=== PATIENT | male | born 1950 | race African-American/Black ===

== ENCOUNTER 2017-02-21 08:19 | Inpatient (IN) ==
--- NOTE | 2017-02-21 09:14 | EKG Report ---
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
[2017-02-21 09:18] LABS: Basophils % 0.5 % (0.0-0.8); Eosinophils # 0.5 10*3/uL (0.0-0.87); Eosinophils % 10.8 % (0.00-10.9); Hematocrit 40.6 VOL% (42.0-52.0); Hemoglobin 13.3 GM/DL (14.0-18.0); Immature Granulocytes % 0.2 %; Immature Granulocytes Absolute 0.01 #; Lymphocytes # 1.4 10*3/uL (1.4-4.0); Lymphocytes % 32.5 % (21.2-54.2); Mean Corpuscular HGB Conc 32.8 GM/DL (32-36); Mean Corpuscular Hemoglobin 31 PG (27-34); Mean Corpuscular Volume 95.3 FL (87-102); Mean Platelet Volume 10.5 FL (9.6-12.0); Monocytes # 0.5 10*3/uL (0.11-0.8); Neutrophils # 1.8 10*3/uL (1.4-7.4); Platelet Count 139 T/CUMM (130-400); Red Blood Count 4.26 MC/CUMM (3.8-5.5); Red Cell Distribution Width 14.9 % (9.3-17.3); White Blood Count 4.2 T/CUMM (4-12)
--- NOTE | 2017-02-21 09:35 | XRay Report ---
XR chest 2V Date: 02/21/2017 9:10 AM History: Chest pain Comparison: 09/12/2014 Technique: PA and lateral chest Findings: The heart is smaller in size with left subclavian atrioventricular permanent pacemaker. The lungs are clear with unremarkable mediastinum. Degenerative changes are noted. Impression: No acute cardiopulmonary pathology identified. Left subclavian atrioventricular permanent pacemaker. PROCEDURE INTERPRETED AT [facility] DEPARTMENT OF RADIOLOGY Final Report Signed by: Dr. Andreea Ramon
[2017-02-21 09:40] LABS: Alanine Aminotransferase 49 U/L (16-61); Albumin 3.4 G/DL (3.4-5.0); Alkaline Phosphatase 99 U/L (45-117); Aspartate Amino Transferase 30 U/L (0-37); Bilirubin,Total < 0.39 MG/DL (0.2-1.0); Blood Urea Nitrogen 40 MG/DL (7-18); Calcium 8.9 MG/DL (8.5-10.1); Glucose 86 MG/DL (74-106); Osmolality,Calculated 289.3 MOS/KG (273-304); Potassium 4.2 MMOL/L (3.5-5.1); Sodium 141 MMOL/L (136-145); Total Protein 7.3 G/DL (6.4-8.3); Troponin I Only 0.026 NG/ML (0.00-0.045)
[2017-02-21] MEDS ORDERED: ASPIRIN 325 MG TABLET PO STA (09:53)
[2017-02-21] MEDS ORDERED: ONDANSETRON 4 MG/2 ML VIAL IV STA (09:53)
[2017-02-21] MEDS ORDERED: MORPHINE 2 MG/1 ML SYRINGE IV STA (09:53)
[2017-02-21] MEDS ORDERED: NITROGLYCERIN 2% OINT 1 INCH/GM PACK TOP STA (09:53)
[2017-02-21] MEDS ORDERED: ALUM/MAG/SIMETH/LIDO VISC 1:1 30 ML BOTTLE PO STA (09:53)
[2017-02-21] MEDS ORDERED: FUROSEMIDE 40 MG/4 ML VIAL IV STA (09:53)
[2017-02-21] MEDS ORDERED: NITROGLYCERIN 2% OINT 1 INCH/GM PACK TOP ONE (10:16)
[2017-02-21] MEDS ORDERED: FUROSEMIDE 40 MG/4 ML VIAL ONE (10:16)
[2017-02-21] MEDS ORDERED: MORPHINE 2 MG/1 ML SYRINGE ONE (10:17)
[2017-02-21] MEDS ORDERED: ALUM/MAG/SIMETH/LIDO VISC 1:1 30 ML BOTTLE PO ONE (10:17)
[2017-02-21] MEDS ORDERED: ONDANSETRON 4 MG/2 ML VIAL ONE (10:17)
[2017-02-21] MEDS ORDERED: ASPIRIN 325 MG TABLET ONE (10:17)
--- NOTE | 2017-02-21 10:31 | Emergency Department Note ---
Ravinder Paulino Mantricia, am scribing for, and in the presence of, Richie Donohue MD 09:50. Charanjit Paulino Charles R, MD, personally performed the services described in this documentation, ascribed by Eddie Castellon in my presence, and it is both accurate and complete . Arrival - Arrival Chief Complaint: Chest Pain Stated Complaint: sob,chest pain, pacemaker problem ED Nursing Triage Note: Pt c/o left sided chest pain, over pacemaker, x3 weeks. Pt also reports SOB with exertion. Mode of Arrival: Ambulatory Limitations: No Limitations Source: Patient Time Seen by Provider: 02/21/17 09:29 - History of Present Illness HPI Narrative: Pt is a 66 y/o black male arriving to ED by EMS with c/o SOB that onset 3 weeks ago. Pt states that he thought the he would be relieved every day, but it never went away so he decided to come to ED. Pt's SOB is accompanied with left-sided chest pain during night and upon exertion. He states that he feels like his chest is getting bigger. Pt has a pacemaker and admits to smoking. He reports no other complaints to ED. Onset (ago): week(s) Consistency: constant Severity: mild Severity scale (1-10): 3 Allergies/Adverse Reactions: Allergies Allergy/AdvReac Type Severity Reaction Status Date / Time No Known Allergies Allergy Verified 02/21/17 08:32 Review of System - Review of System 12 point system: reviewed and no additional remarkable complaints except as stated - Review of System Constitutional: Absent: chills, diaphoresis, fever, weakness Eyes: Absent: discharge, pain, redness Head/Ears/Nose/Throat: Absent: earache, epistaxis, nasal drainage Respiratory: Absent: cough, respiratory distress, wheezing Cardiovascular: Present: chest pain (left-sided), dyspnea on exertion. Absent: palpitations Gastrointestinal: Absent: abdominal pain, nausea, vomiting, diarrhea Genitourinary male: Absent: urgency, dysuria Musculoskeletal: Absent: arm pain, back pain, leg pain, neck pain Skin: Absent: rash, lesions, change in color Neurological: Absent: headache, weakness Psychiatric: Absent: anxiety, depression Medical,Surgical,& Family Hx - Medical History Cardio: History of: Hypertension, Pacemaker Endocrine: History of: Diabetes Mellitus (NIDDM) (not on medication) - Social History Smoking Status: Smoker, status unknown Frequency of Alcohol Use: None Type of Drug Use: None Exam Vital Signs: Vital Signs Temperature 98.0 F 02/21/17 09:00 Pulse Rate 64 02/21/17 09:00 Respiratory Rate 18 02/21/17 09:00 Blood Pressure 136/96 02/21/17 09:00 O2 Sat by Pulse Oximetry 100 02/21/17 08:48 - General General appearance: alert, in no apparent distress - Head Head exam: Present: atraumatic, normocephalic, normal inspection - Eye Eye exam: Present: normal appearance, PERRL, EOMI - ENT ENT exam: Present: normal exam, normal oropharynx, mucous membranes moist, TM's normal bilaterally, normal external ear exam - Neck Neck exam: Present: normal inspection, full ROM, trachea midline. Absent: tenderness - Chest Chest inspection: Present: normal inspection, symmetric chest wall rise. Absent : tenderness - Respiratory Respiratory exam: Present: rales (bilateral) - Cardiovascular Cardiovascular exam: Present: regular rate, normal rhythm, normal heart sounds - Abdominal Exam Abdominal exam: Present: soft, normal bowel sounds. Absent: distention, tenderness, guarding, rebound - Extremities Exam Extremities exam: Present: full ROM, normal capillary refill, other (LE edema). Absent: tenderness - Back Exam Back exam: Present: normal inspection, full ROM. Absent: tenderness - Neurological Exam Neurological exam: Present: alert, oriented X3, CN II-XII intact, normal gait, reflexes normal - Psychiatric Psychiatric exam: Present: normal affect, normal mood - Skin Skin exam: Present: warm, dry, intact, normal color Course - Consultations Consultation #1: Hospitalist will admit patient Time: 10:31 Results - Labs CBC & BMP: 02/21/17 08:57 02/21/17 08:57 Lab Results: I have reviewed the patients labs Labs: Laboratory Tests 02/21/17 02/21/17 08:57 08:57 Hgb 13.3 L Hct 40.6 L Chloride 109 H BUN 40 H Creatinine 4.20 H Globulin 3.9 H Albumin/Globulin Ratio 0.8 L - Diagnostic Findings Procedure: Chest x-ray: report reviewed by me (No acute cardiopulmonary pathology identified. Left subclavian atrioventricular permanent pacemaker. ) Disposition Clinical Impression: Chest pain, Exertional dyspnea, Chronic renal failure, Pacemaker Case discussed with: patient Disposition: Still a Patient Condition: Stable Time of Disposition: 10:42
--- NOTE | 2017-02-21 11:24 | Hospitalist History & Physical ---
Assessment and Plan - Time spent with patient Time spent with patient: Greater than 30 minutes (1) Acute on chronic renal failure Status: Acute Assessment and plan: 66-year-old -Mexican male with history of hypertension, pacemaker admitted by the hospitalist service with shortness of breath and chest pain. Patient did run out of his Lasix so have to restart this. We will also consult Dr. Galeana his transportation dispatcher to check pacemaker. Consult Dr. Edwards for worsening renal function. We will have to be careful with diuresing with Lasix due to renal function. Will restart his other home medicines. Patient states he is a diabetic but there are no medicines on his list and his blood sugars are normal. Dr. Wallace will see and examine the patient and further recommendations to follow. Current Visit: Yes (2) Chest pain Status: Acute Current Visit: Yes (3) Dyspnea on exertion Status: Acute Current Visit: Yes (4) Pacemaker Status: Acute Current Visit: Yes History of Present Illness Chief complaint: Chest pain and shortness of breath History of present illness: Mr. Johns is a 66 year old male with history of hypertension, chronic kidney disease, and pacemaker presenting to the ED with a 3 week history of progressive shortness of breath and left-sided chest pain. Patient states he did run out of his Lasix approximately 1 month ago but he takes all of his other medicines. Patient also states he just got a letter from Dr. Galeana's office saying he needed to have his pacemaker interrogated. He thought he would just get this done while he was here too. Patient states over the last 3 weeks he has had worsening shortness of breath especially on exertion. He also has periodic left-sided chest pain. He also states he has been smoking. He states he has been peeing a lot lately and has been thirsty. He denies headache , weakness, abdominal pain, constipation or diarrhea, or lower extremity edema. Patient's CBC is normal. Patient's creatinine is 4.2 which is elevated from his baseline of 3 which was last checked in 2013. Patient's case was discussed with Dr. Donohue the ED physician and Dr. Wallace the admitting hospitalist, and it was agreed patient would be admitted for further evaluation and treatment. Patient's family doctor is Dr. Stahl, mottler operator is Grace, and transportation dispatcher is Kervin. Home Medications Medication Instructions Recorded Confirmed Type Aspirin EC Tab 81 mg PO QAM 02/21/17 02/21/17 History Metoprolol Tartrate 50 mg PO BID W/MEALS 02/21/17 02/21/17 History amLODIPine [Norvasc] 10 mg PO QAM 02/21/17 02/21/17 History cloNIDine TAB [Catapres Tab] 0.2 mg PO TID 02/21/17 02/21/17 History Allergies Allergy/AdvReac Type Severity Reaction Status Date / Time No Known Allergies Allergy Verified 02/21/17 08:32 Medical,Surgical,& Family Hx - Medical History Cardio: History of: Hypertension, Pacemaker Endocrine: History of: Diabetes Mellitus (NIDDM) (not on medication) - Surgical History Abdominal Surgeries: Surgical HX of: Appendectomy - Family History Family History: Reports;: Family Heart Disease - Social History Smoking Status: Current every day smoker Have you smoked in the last 12 months: Yes Frequency of Alcohol Use: None Type of Drug Use: None Lives With:: Alone Functional capacity: independent ambulation Review of systems: Complete 10 system review of systems was obtained and pertinent positives and negatives per HPI Exam - Constitutional Vitals: Period Temp Pulse Resp BP Sys/Jain Pulse Ox Last 24 Hr 98.0 F-98.0 F 59-64 18-28 136-173/87-107 99-100 Exam: Constitutional System: No distress. No tremulousness. Head: Normocephalic, atraumatic. Ears, Nose and Throat System: No evidence of Otitis or Mastoiditis. No epistaxis or discharge, poor dentition Eyes System: Pupils equal, round, and reactive. Extraocular muscles intact. Neck: Supple, without adenopathy, No jugular venous distention. No thyromegaly, neck mass, or prior surgery apparent. Respiratory System: Chest mild crackles at bilateral bases to auscultation. Cardiovascular System: Heart with regular rate and rhythm. No murmur. GI System: Abdomen soft, nontender. Normo active bowel sounds present. Musculoskeletal System: limbs with no pedal edema. Full distal pulses. Neurological System: No discernable sensory deficit. No aphasia Psychiatric System: Conversation is rational Results - Labs CBC & BMP: 02/21/17 08:57 02/21/17 08:57 Lab Results: I have reviewed the past 24 hour labs - Impressions Paced - Diagnostic Findings Procedure: Chest x-ray: report reviewed by me (No acute cardiopulmonary pathology left permanent pacemaker)
[2017-02-21] MEDS ORDERED: ONDANSETRON 4 MG/2 ML VIAL IV PRN (11:30)
[2017-02-21] MEDS ORDERED: ACETAMINOPHEN 325 MG TABLET PO PRN (11:30)
[2017-02-21] MEDS ORDERED: MORPHINE 2 MG/1 ML SYRINGE IV PRN (11:30)
[2017-02-21] MEDS ORDERED: guaiFENesin/DM ER 600-30 MG TABLET PO PRN (11:30)
[2017-02-21] MEDS ORDERED: diphenhydrAMINE CAP 25 MG CAPSULE PO PRN (11:30)
[2017-02-21] MEDS ORDERED: NICOTINE 21 MG/24 HR PATCH TRANSDERM PRN (11:30)
[2017-02-21] MEDS ORDERED: DOCUSATE SODIUM 100 MG CAPSULE PO PRN (11:30)
--- NOTE | 2017-02-21 13:07 | EKG Report ---
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
[2017-02-21] MEDS: ENOXAPARIN 30 MG/0.3 ML SYRINGE SUBCUT SCH (15:15)
[2017-02-21] MEDS: amLODIPine 10 MG TABLET PO SCH (15:15)
[2017-02-21] MEDS: PANTOPRAZOLE 40 MG TABLET PO SCH (15:15)
[2017-02-21] MEDS: ASPIRIN EC 81 MG TABLET PO SCH (15:16)
--- NOTE | 2017-02-21 16:13 | EKG Report ---
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
[2017-02-21] MEDS ORDERED: cloNIDine 0.1 MG TABLET PO PRN (16:35)
--- NOTE | 2017-02-21 16:35 | Cardiology Consult Note ---
Jordon Paulino Vanessa, RN, am scribing for, and in the presence of, Tylor Alonzo MD 16:35. Assessment and Plan - Time spent with patient Time spent with patient: Greater than 30 minutes (Due to assessment, planning, documentation, medication review) (1) Pacemaker Status: Acute Current Visit: Yes (2) Dyspnea on exertion Status: Acute Current Visit: Yes (3) Hypertension Status: Acute Current Visit: Yes (4) History of stroke Status: Acute Current Visit: Yes (5) Acute on chronic renal failure Status: Acute Current Visit: Yes (6) Chest pain Status: Acute Current Visit: Yes History of Present Illness - Data of Consult Patient: known to practice within the last 3 years Consult date: 02/21/17 Requesting Physician: Ember Lieberman Primary care physician: Rebecca Pascual - Consult Narrative Reason for consult: pacemaker interrogation, CP, SOB History of present illness: PRIMARY EDUCATION RN: DR. JENNYFER GOETZ PCP: DONNIE CHAUDHARY Mr. 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 He presented to [facility] today via EMS complaining of shortness of breath with onset 3 weeks ago. Reports that over the past few days, he has noticed an increase in his dyspnea on exertion. He also had left-sided chest pain yesterday relieved with nitroglycerin. EKG reveals atrial ventricular pacing with no acute ischemic finding. Lab work unremarkable for ACS. Troponin level 0.023, but review of old records shows chronic elevation of troponin level. Admitted to the hospitalist service for further observation and treatment. Cardiology has been consulted to see patient as he has requested to have his pacemaker interrogated along with his medications refilled. Patient reports 2+ pillow orthopnea, PND, and generalized fatigue over the last 3 days. Yesterday when he experienced his chest pain, he described it as a "burning" and described it as becoming worse with movement. Denied radiation or associated symptoms such as dyspnea, diaphoresis, palpitation, presyncope, or other. States he took 2 nitroglycerin and pain was relieved. Denies recent cough, fever, chills. No recent hematuria, hematemesis, change in bowel movement color. Reports that he has continued to smoke 1 pack per day, but he tells me that he quit "a few days ago". At time of exam, he states he feels less short of breath, and he has been ambulating to the bathroom and back to bed without moderate difficulty. He has had no further chest pain today. According to [facility] records, he has missed several [facility] appointments for pacemaker interrogation starting in August. There have been phone calls made and letters mailed to his home with the last one being mailed on 02/07. Patient reports that he has received these notifications, but he "just has not taken care of it yet". He reports frequent urination since receiving 40 mg IV Lasix in the emergency room, and he tells me he feels much better now. Nitro-Bid patch present to right chest wall. Labs reviewed. H&H 13.3 and 40.6. Sodium 141. Potassium is 4.2 magnesium is 2.0 creatinine 4.2 (3.0 in September 2014). He has been evaluated by Dr. Edwards in the past for chronic kidney disease, and Dr. Edwards has been consulted to see during this admission also. Last echocardiogram August 2014 which revealed normal systolic function and ejection fraction 60%. Patient admitted with dyspnea atypical chest pain history of pacemaker which is been lost to follow-up. We will have his pacemaker interrogated review a 2D echocardiogram and rule out myocardial infarction. He is having chest pain which is atypical but is a poor historian. He has chronic renal insufficiency and will have nephrology review CC: Soo Wallace MD - Home Medications and Allergies Home Medications: Home Medications Medication Instructions Recorded Confirmed Type Aspirin EC Tab 81 mg PO QAM 02/21/17 02/21/17 History Metoprolol Tartrate 50 mg PO BID W/MEALS 02/21/17 02/21/17 History amLODIPine [Norvasc] 10 mg PO QAM 02/21/17 02/21/17 History cloNIDine TAB [Catapres Tab] 0.2 mg PO TID 02/21/17 02/21/17 History Allergies/Adverse Reactions: Allergies Allergy/AdvReac Type Severity Reaction Status Date / Time No Known Allergies Allergy Verified 02/21/17 08:32 - Constitutional Constitutional: Present: as per HPI - EENT Eyes: Present: as per HPI Ears: Present: as per HPI Nose, mouth and throat: Present: as per HPI - Cardiovascular Cardiovascular: Present: as per HPI - Respiratory Respiratory: Present: as per HPI - Gastrointestinal Gastrointestinal: Present: as per HPI - Genitourinary Genitourinary: Present: as per HPI - Musculoskeletal Musculoskeletal: Present: as per HPI - Neurological Neurological: Present: as per HPI - Psychiatric Psychiatric: Present: as per HPI - Endocrine Endocrine: Present: as per HPI - Hematologic/Lymphatic Hematologic/Lymphatic: Present: as per HPI Medical,Surgical,& Family Hx - Medical History Cardio: History of: Hypertension, Pacemaker No history of: CHF, [place], PVD Neurology: History of: Cerebrovascular Accident (left sided), Seizures (1990) Endocrine: History of: Diabetes Mellitus (NIDDM) (not on medication) Respiratory: No history of: Obstructive Sleep Apnea, Pulmonary Embolism Renal: History of: Renal Failure Gastrointestinal: History of: GERD No history of: Gastrointestinal Bleed Hematology: No history of: Anemia, Blood Transfusion Reaction - Surgical History Abdominal Surgeries: Surgical HX of: Appendectomy - Family History Family History: Reports;: Family Heart Disease - Social History Smoking Status: Current every day smoker Have you smoked in the last 12 months: Yes Time spent discussing smoking cessation with patient: more than 10 minutes Frequency of Alcohol Use: None Type of Drug Use: None Functional capacity: independent ambulation Physical Examination Vital Signs Temp Pulse Resp BP Pulse Ox 98.0 F 64 18 136/96 99 02/21/17 08:28 02/21/17 08:28 02/21/17 08:28 02/21/17 08:28 02/21/17 08:28 General: Present: Appears Well, No Apparent Distress HEENT: Present: PERRL, Normocephaly, Mucus Membranes Moist. Absent: Jaundice, Pallor, Oral Lesions Neck: Present: Supple Neck, Midline Trachea, No JVD/HJR, No Bruit Cardiac: Present: Reg Rate and Rhythm, No Murmur Lungs: Present: No Wheeze, Rales, Rhonchi, Other (Crackles bibasilarly) Neuro: Present: Grossly Intact, Other (Slight right facial droop related to previous CVA; speech appropriate). Absent: Resting Tremor, Essential Tremor Abdomen: Present: Soft, Active Bowel Sounds, No Masses. Absent: Tender, Firm Skin: Present: Clear. Absent: Rash, Suspicious Lesions Extremities: Present: No Cyanosis, No Edema, Normal Upper Extr. Pulses (3-4+ bilaterally), Normal Lower Extr. Pulses (3-4+ bilaterally), Capillary Refill ( Normal) Result/EKG - Labs CBC & BMP: 02/21/17 08:57 02/21/17 08:57 Lab Results: I have reviewed the past 24 hour labs Labs: Laboratory Results - last 24 hr 02/21/17 13:21 Troponin I 0.023 - Diagnostic Findings Procedure: Chest x-ray: image reviewed by me, report reviewed by me - EKG EKG results: interpreted by me, no acute changes IClinton Wesley, MD, personally performed the services described in this documentation, ascribed by Hui Ruvalcaba RN in my presence, and it is both accurate and complete [id number] .
--- NOTE | 2017-02-21 16:57 | Nephrology Consult Note ---
History of Present Illness Chief complaint: CRF History of present illness: Mr. Johns is a 66 year old male admitted with a chief complaint WATSON. He had burning substernal chest pain yesterday. No orthopnea or PND. He was noted to have worsened chronic renal failure at the time of admission. He denies dysuria or obstructive symptoms. Home Medications Medication Instructions Recorded Confirmed Type Aspirin EC Tab 81 mg PO QAM 02/21/17 02/21/17 History Metoprolol Tartrate 50 mg PO BID W/MEALS 02/21/17 02/21/17 History amLODIPine [Norvasc] 10 mg PO QAM 02/21/17 02/21/17 History cloNIDine TAB [Catapres Tab] 0.2 mg PO TID 02/21/17 02/21/17 History Allergies Allergy/AdvReac Type Severity Reaction Status Date / Time No Known Allergies Allergy Verified 02/21/17 08:32 Medical,Surgical,& Family Hx - Medical History Cardio: History of: Hypertension, Pacemaker No history of: CHF, [place], PVD Neurology: History of: Cerebrovascular Accident (left sided), Seizures (1990) Endocrine: History of: Diabetes Mellitus (NIDDM) (not on medication) Respiratory: No history of: Obstructive Sleep Apnea, Pulmonary Embolism Renal: History of: Renal Failure Gastrointestinal: History of: GERD No history of: Gastrointestinal Bleed Hematology: No history of: Anemia, Blood Transfusion Reaction - Surgical History Abdominal Surgeries: Surgical HX of: Appendectomy - Family History Family History: Reports;: Family Heart Disease - Social History Smoking Status: Current every day smoker Frequency of Alcohol Use: None Type of Drug Use: None Review of Systems 12 point system: reviewed and no additional remarkable complaints except as stated Exam - Vital Signs Vital signs: Period Temp Pulse Resp BP Sys/Jain Pulse Ox Last 24 Hr 97.6 F 61-68 17-18 155-175/103-114 98-100 Exam: Gen.: Alert and oriented x3. ENT: Pupils equal round reactive to light. EOMs intact. Mucous membranes moist. Neck: Supple. No JVD or bruit. Cardiovascular: Regular rate and rhythm. No murmur rub or gallop Lungs: Clear Abdomen: Soft. Nontender. Positive bowel sounds. No organomegaly Extremities: No edema Results - Labs CBC & BMP: 02/21/17 08:57 02/21/17 08:57 Assessment and Plan (1) Chronic kidney disease, stage IV (severe) Status: Acute Assessment and plan: 66-year-old man admitted with: * WATSON. Echocardiogram pending. Cardiology has been consulted. * Permanent pacemaker * CRF stage IV. Baseline creatinine 3.1 as of 2 years ago. Current renal function likely represents his baseline. He is on no nephrotoxic medications. Avoid NSAIDs * Diabetes mellitus * Hypertension Current Visit: Yes (2) Diabetes mellitus Status: Acute Current Visit: Yes (3) Chest pain Status: Acute Current Visit: Yes (4) Dyspnea on exertion Status: Acute Current Visit: Yes (5) History of stroke Status: Acute Current Visit: Yes (6) Hypertension Status: Acute Current Visit: Yes
[2017-02-21] MEDS: FUROSEMIDE 40 MG/4 ML VIAL IV SCH (18:11)
[2017-02-21] MEDS: METOPROLOL TARTRATE 50 MG TABLET PO SCH (18:11)
[2017-02-22 05:32] LABS: Basophils % 0.2 % (0.0-0.8); Eosinophils # 0.4 10*3/uL (0.0-0.87); Eosinophils % 9.7 % (0.00-10.9); Hematocrit 39.8 VOL% (42.0-52.0); Hemoglobin 13.2 GM/DL (14.0-18.0); Immature Granulocytes % 0.2 %; Immature Granulocytes Absolute 0.01 #; Lymphocytes # 1.6 10*3/uL (1.4-4.0); Lymphocytes % 40.1 % (21.2-54.2); Mean Corpuscular HGB Conc 33.2 GM/DL (32-36); Mean Corpuscular Hemoglobin 31 PG (27-34); Mean Corpuscular Volume 92.3 FL (87-102); Mean Platelet Volume 10.3 FL (9.6-12.0); Monocytes # 0.5 10*3/uL (0.11-0.8); Monocytes % 11.1 % (1.7-12.7); Neutrophils # 1.6 10*3/uL (1.4-7.4); Neutrophils % 38.7 % (38.7-73.9); Platelet Count 142 T/CUMM (130-400); Red Blood Count 4.31 MC/CUMM (3.8-5.5); Red Cell Distribution Width 14.7 % (9.3-17.3)
[2017-02-22 06:04] LABS: Magnesium 2.2 MG/DL (1.8-2.4); Osmolality,Calculated 287.5 MOS/KG (273-304); Potassium 4.3 MMOL/L (3.5-5.1)
[2017-02-22 06:11] LABS: Troponin I Only 0.025 NG/ML (0.00-0.045)
--- NOTE | 2017-02-22 07:30 | XRay Report ---
Exam: XR chest 2V Date: 02/22/2017 4:00 AM Indication: Shortness of breath Comparison: 02/21/2017 Technical: PA lateral Findings: Cardiac pacing device and placement left-sided approach with atrial ventricular leads. Lateral marginal osteophytes are present with ASVD. The lungs are clear. Mediastinum is unremarkable. Impression: 1. Stable position of the cardiac pacing device 2. No obvious acute cardiothoracic pathology. 3. Degenerative spondylosis change thoracic spine PROCEDURE INTERPRETED AT [facility] DEPARTMENT OF RADIOLOGY Final Report Signed by: Dr. Jaquan Corea
[2017-02-22] MEDS: amLODIPine 10 MG TABLET PO SCH (08:49)
[2017-02-22] MEDS: FUROSEMIDE 40 MG/4 ML VIAL IV SCH (08:49)
[2017-02-22] MEDS: METOPROLOL TARTRATE 50 MG TABLET PO SCH (08:50)
[2017-02-22] MEDS: PANTOPRAZOLE 40 MG TABLET PO SCH (08:50)
[2017-02-22] MEDS: ASPIRIN EC 81 MG TABLET PO SCH (08:50)
--- NOTE | 2017-02-22 10:59 | Discharge Summary ---
Hospital Course - Hospital Course Hospital Course: Mr Johns presented for pacemaker interrogation and concerns that he was out of lasix. His renal failure was determined to have worsened so he was admitted to evaluate. He had had some atypical chest pain symptoms which cardiology did not feel required further inpatient evaluation. I suspect his symptoms arose from some mild pulmonary edema that occurred when he ran out of his lasix. He will have outpatient echo. He had no chest pain while here and did not report chest pain prior to admission to [place]. He was seen by cardiology and his pacemaker was interrogated. No medicines were changed. Dr Edwards also saw him and determined that his renal failure with creatinine of around 4 is the natural progression of his CKD stage 4. He will follow up with Dr Galeana as usual and with DR Edwards in their clinics. His lasix is refilled. - Time spent with patient Time with patient DS: Less than 30 minutes Diagnosis - Discharge Diagnosis (1) Atypical chest pain Status: Acute (2) Chronic kidney disease, stage IV (severe) Status: Chronic (3) Diabetes mellitus Status: Chronic (4) Hypertension Status: Chronic (5) Pacemaker Status: Chronic Specialty Discharge - Follow Up or Referrals Follow up with: Christopher Galeana MD [Physician] - 03/08/17 11:00 am () Lloyd Edwards MD [Physician] - 08/07/17 2:00 pm Discharge Plan - Discharge Data Disposition: Disch To Home/Self Care Condition at Discharge: Stable Discharge Diet: diabetic diet, heart healthy Activity: resume usual activities as tolerated - Discharge Medications New Furosemide Tab [Lasix Tab] 40 mg PO DAILY #30 tablet Continue cloNIDine TAB [Catapres Tab] 0.2 mg PO TID amLODIPine [Norvasc] 10 mg PO QAM Metoprolol Tartrate 50 mg PO BID W/MEALS Aspirin EC Tab 81 mg PO QAM - Follow Up or Referral Follow Up: Christopher Galeana MD [Physician] - 03/08/17 11:00 am () Lloyd Edwards MD [Physician] - 08/07/17 2:00 pm - Forms/Instructions Instructions: Chest Pain (DC), End-Stage Kidney Disease (GEN), Acute Coronary Syndrome Exam - Constitutional Vitals: Period Temp Pulse Resp BP Sys/Jain Pulse Ox Last 24 Hr 96.9 F-97.8 F 59-78 14-20 108-175/71-114 95-100 General appearance: normal weight, no acute distress - Eye Eye exam: Present: EOMI. Absent: scleral icterus - Respiratory Respiratory exam: Present: clear to auscultation bilaterally - Cardiovascular Cardiovascular exam: Present: regular rate and rhythm - GI/Abdominal GI/Abdominal exam: Present: normal bowel sounds, soft. Absent: tenderness - Extremities Exam Extremities exam: Absent: edema Discharge Results Labs on day of discharge: Labs from last 24 hours 02/22/17 02/22/17 02/22/17 04:23 04:23 04:23 WBC 4.0 RBC 4.31 Hgb 13.2 L Hct 39.8 L MCV 92.3 MCH 31 MCHC 33.2 RDW 14.7 Plt Count 142 MPV 10.3 Neut % (Auto) 38.7 Lymph % (Auto) 40.1 [place] % (Auto) 11.1 Eos % (Auto) 9.7 Baso % (Auto) 0.2 Neut # (Auto) 1.6 Lymph # (Auto) 1.6 [place] # (Auto) 0.5 Eos # (Auto) 0.4 Baso # (Auto) 0.0 Immature Gran % 0.2 Nucleated RBC % 0.0 Immature Gran # 0.01 Nucleated RBCs # 0.00 Sodium 139 Potassium 4.3 Chloride 104 Carbon Dioxide 27 Anion Gap 12.3 BUN 43 H Creatinine 3.90 H GFR Calculation 23 BUN/Creatinine Ratio 11.00 Glucose 99 Calculated Osmolality 287.5 Calcium 9.0 Magnesium 2.2 Total Creatine Kinase 78 D CK-MB (CK-2) 1.4 Troponin I 0.025 02/21/17 02/21/17 16:57 13:21 WBC RBC Hgb Hct MCV MCH MCHC RDW Plt Count MPV Neut % (Auto) Lymph % (Auto) [place] % (Auto) Eos % (Auto) Baso % (Auto) Neut # (Auto) Lymph # (Auto) [place] # (Auto) Eos # (Auto) Baso # (Auto) Immature Gran % Nucleated RBC % Immature Gran # Nucleated RBCs # Sodium Potassium Chloride Carbon Dioxide Anion Gap BUN Creatinine GFR Calculation BUN/Creatinine Ratio Glucose Calculated Osmolality Calcium Magnesium Total Creatine Kinase CK-MB (CK-2) Troponin I 0.025 0.023 DS: Provider Date of admission: 02/21/17 10:53 Primary care physician: . No PCP Attending physician on admission: Soo Wallace MD Consults: 02/21/17 11:30 Consult to Physician [CONS] Routine Comment: pt of boyds, cp, sob, pacemaker Consulting Provider: Cardiology - [facility] When should Consulting Provider be notified: Now Consult to Specialist Group: Cardiology Person Notified: RILEY Date Notified: 02/21/17 Time Notified: 13:40 Consult to Physician [CONS] Routine Comment: pt of yours, worsening renal function Consulting Provider: Lloyd Edwards When should Consulting Provider be notified: Now Consult to Specialist Group: Nephrology Person Notified: JEFF Date Notified: 02/21/17 Time Notified: 13:40 02/21/17 13:53 Consult to Dietitian [CONS] Routine Reason for Dietitian: Other Discharging clinician: Soo Wallace MD
[2017-02-22] MEDS: ENOXAPARIN 30 MG/0.3 ML SYRINGE SUBCUT SCH (11:12)
[2017-02-22 11:48] VITALS: BP 134/81
--- NOTE | 2017-02-22 17:32 | ECHO Report ---
Dylan Johns Exam Date: 02/22/2017 09:14 Referring Physician: Technologist: Jennifer Bhakta Age: 66 Ht (in): 74 Wt (lb): 225 Gender: M Exam Location: [facility] Echo Indications: Chest pain, unspecified, Dyspnea, unspecified, Essential (primary) hypertension, Presence of cardiac pacemaker, Acute kidney failure, unspecified, Chronic kidney disease, unspecified BP: 134 / 81 HR: 62 Rhythm: Sinus Technical Quality: Technically difficult study IMPRESSIONS Technically difficult study. EF 55 %. Mild concentric left ventricular hypertrophy. The right ventricle is normal in size and function. Moderately increased right atrial size. The left atrium is mildly enlarged. Mildly thickened mitral valve. Mitral annular calcification. Trace mitral valve regurgitation. Aortic valve sclerosis. Trace aortic valve regurgitation. Mild tricuspid valve regurgitation. PAP 40 mmHg. Pulmonic valve not well visualized. Normal pericardium without effusion. Normal ascending aorta dimension. Grade I diastolic dysfunction. MEASUREMENTS (Male / Female) Normal Values 2D ECHO LV Diastolic Diameter PLAX 4.3 cm 4.2 - 5.9 / 3.9 - 5.3 cm LV Systolic Diameter PLAX 3.2 cm LV Fractional Shortening PLAX 23.9 % IVS Diastolic Thickness 1.3 cm 0.6 - 1.0 / 0.6 - 0.9 cm LVPW Diastolic Thickness 1.7 cm 0.6 - 1.0 / 0.6 - 0.9 cm RV Internal Dim ED PLAX 3.7 cm Aortic Root Diameter 3.9 cm LA Systolic Diameter LX 3.5 cm 3.0 - 4.0 / 2.7 - 3.8 cm DOPPLER TR Peak Velocity 289.0 cm/s TR Peak Gradient 33.4 mmHg FINDINGS Left Ventricle EF 55 %. Mild concentric left ventricular hypertrophy. Right Ventricle The right ventricle is normal in size and function. Right Atrium Moderately increased right atrial size. Left Atrium The left atrium is mildly enlarged. Mitral Valve Mildly thickened mitral valve. Mitral annular calcification. Trace mitral valve regurgitation. Aortic Valve Aortic valve sclerosis. Trace aortic valve regurgitation. Tricuspid Valve Tricuspid valve not well visualized. Mild tricuspid valve regurgitation. PAP 40 mmHg. Pulmonic Valve Pulmonic valve not well visualized. Pericardium Normal pericardium without effusion. Aorta Normal ascending aorta dimension. Patrice Ori (Electronically Signed) Final Date: 22 Feb 2017 17:30
== END 2017-02-22 14:10 | disposition home or self-care (01) | DRG 684 ==
LOC: N.ED 08:19 → N.EDINP 10:53 → N.TELEN 13:07
PROVIDERS: ADMIT Internal Medicine; ATTEND Internal Medicine